=== PATIENT | female | born 1945 | race Caucasian/White ===

== ENCOUNTER → 2017-11-16 | Outpatient (CLI) | payer MEDICARE ==
[~2017-11-16] MED LIST: ALEN70TA42 PO; ASPI-715 PO; CALC500T42 PO; CICPT NS; ESOM40CA42 PO; LEVO50 PO; MOMR; MON10 PO; MULT-1335 PO; RABE20TA33 PO; SITA1TAB16 PO
--- NOTE | 2017-11-16 14:21 | EKG ---
FACILITY: [facility] PATIENT NAME: PAULA MCINTOSH : [id number] MR: [id number] V: [id number] EXAM DATE: ORDERING PHYSICIAN: JANEY LANDRUM TECHNOLOGIST: GET Murphy Reason : PAIN Blood Pressure : / mmHG Vent. Rate : 074 BPM Atrial Rate : 074 BPM P-R Int : 166 ms QRS Dur : 086 ms QT Int : 380 ms P-R-T Axes : 031 008 018 degrees QTc Int : 421 ms Sinus rhythm Borderline left axis Decreased R wave progression through precordial leads Borderline ECG No previous ECGs available Confirmed by MITZI MCRAE ([id number]) on 11/17/2017 6:14:14 AM Referred By: LUCITA Confirmed By:MITZI MCRAE
== END ==
LOC: RESP 14:09
PROVIDERS: ATTEND Nurse Practitioner Family
DX: R11.10 Vomiting, unspecified (principal); R07.2 Precordial pain; R94.31 Abnormal electrocardiogram [ECG] [EKG]
CPT/HCPCS: 93005

== ENCOUNTER → 2018-05-05 | Outpatient (CLI) | payer MEDICARE ==
--- NOTE | 2018-05-05 14:44 | RADIOLOGY IMAGING REPORT ---
FACILITY: [facility] PATIENT NAME: Opal Wynne : 1945 MR: [id number] V: [id number] EXAM DATE: ORDERING PHYSICIAN: JANEY LANDRUM TECHNOLOGIST: Location: [facility] Patient: Opal Wynne : 1945 Visit/Account:[id number] Date of Sevice: 05/05/2018 Abdominal ultrasound Indication: Right upper quadrant pain Comparison: None Findings: Liver is normal in size, contour, and echotexture and measures 14.9 cm in length. There is normal hep atopedal portal venous flow. No ascites. Graphic images of the gallbladder demonstrate multiple, mobile shadowing echogenic stones. There is n o evidence of wall thickening or pericholecystic fluid. Cargo Service Agent reports a positive sonographic Mu rphy sign. Common duct measures 2 mm in maximum diameter with no evidence of shadowing stone. The head and proximal body of the pancreas is unremarkable. The distal body and tail is obscured by o verlying bowel gas. Abdominal aorta and IVC are patent and unremarkable. The right kidney appears sonographically normal measuring 8.2 x 4.5 x 4.6 cm. IMPRESSION: 1. Cholelithiasis with reported sonographic Grover's sign. There is no wall thickening or pericholecy stic fluid to suggest acute cholecystitis. Further evaluation if needed could be performed with a HIDA scan Report Dictated By: Dave Orourke MD at 05/05/2018 2:36 PM Report E-Signed By: Dave Orourke MD at 05/05/2018 2:39 PM WSN:[id number]
== END ==
LOC: US 02:00
PROVIDERS: ATTEND Nurse Practitioner Family
DX: K80.20 Calculus of gallbladder without cholecystitis without obstruction (principal); R19.8 Other specified symptoms and signs involving the digestive system and abdomen
CPT/HCPCS: 76705

== ENCOUNTER → 2018-10-26 | Outpatient (CLI) | payer MEDICARE ==
[~2018-10-26] MED LIST changes: +AMOX-559 PO; +ASCO-182 PO; +CHOL10005 PO; +CYAN250013 PO; +FLUO40CA76 PO; +LACT1CAP6 PO; +LEVO75TA73 PO; +METF-452 PO; +MOMR ENA; +OMEP40CA48 PO; +SPIR25TA80 PO; +SUMA50TA35 PO
[2018-10-26 11:44] LABS: PLATELET COUNT, AUTOMATED 275 K/uL (150-450)
--- NOTE | 2018-10-27 09:10 | EKG ---
FACILITY: [facility] PATIENT NAME: PAULA MCINTOSH : [id number] MR: [id number] V: [id number] EXAM DATE: ORDERING PHYSICIAN: SAGRARIO LABOY TECHNOLOGIST: MOHINDER Test Reason : PRE-OP Blood Pressure : / mmHG Vent. Rate : 077 BPM Atrial Rate : 077 BPM P-R Int : 144 ms QRS Dur : 090 ms QT Int : 422 ms P-R-T Axes : 005 -11 -21 degrees QTc Int : 477 ms Normal sinus rhythm T wave abnormality, consider anterior ischemia Prolonged QT Abnormal ECG Confirmed by JAVIER CRUZ ([id number]) on 10/27/2018 8:10:23 PM Referred By: Confirmed By:JAVIER CRUZ
== END ==
LOC: LAB 11:18
PROVIDERS: ATTEND Surgery
DX: E11.9 Type 2 diabetes mellitus without complications (principal); Z86.718 Personal history of other venous thrombosis and embolism; I45.81 Long QT syndrome; R94.31 Abnormal electrocardiogram [ECG] [EKG]
CPT/HCPCS: 36415; 82040; 82247; 82310; 82374; 82435; 82565; 82947; 83036; 83690; 84075; 84132; 84155; 84295; 84450; 84460; 84520; 85025